=== PATIENT | male | born 1975 | race Caucasian/White ===

== ENCOUNTER 2017-11-13 15:09 | Emergency (ER) | payer SELFPAY ==
[2017-11-13] MEDS ORDERED: cefTRIAXone\\ROCEPHIN 1 GM VIAL ONE (15:33)
[2017-11-13] MEDS ORDERED: Lidocaine 1% 20 ML MDV ONE (15:33)
[2017-11-13] MEDS ORDERED: Ketorolac Tromethamine 60 MG/2 ML VIAL ONE (15:33)
== END 2017-11-13 16:00 | disposition home or self-care (01) ==
LOC: MADERS 15:09
DX: H66.92 Otitis media, unspecified, left ear (principal); F17.210 Nicotine dependence, cigarettes, uncomplicated
CPT/HCPCS: 96372; J0696; J1885; J2001

== ENCOUNTER 2019-07-17 07:55 | Emergency (ER) | payer SELFPAY ==
[2019-07-17] MEDS ORDERED: Azithromycin 250 MG TAB ONE (08:46)
[2019-07-17] MEDS ORDERED: cefTRIAXone\\ROCEPHIN 250 MG VIAL ONE (08:46)
[2019-07-17] MEDS ORDERED: Lidocaine 1% 20 ML MDV ONE (08:48)
[2019-07-17 09:08] LABS: Bilirubin Small (Negative); Blood, Urine Moderate (Negative); Clarity Cloudy (Clear); Glucose, Urine (Dipstick) 100 mg/dL (Negative); Leukocyte Large (Negative); Nitrite Positive (Negative); Protein, Urine (Dipstick) 100 mg/dL (Neg-Trace)
[2019-07-17 09:22] LABS: Bacteria/HPF 1+ HPF (None Seen); Mucous/LPF Rare LPF (<2+); WBC/HPF Greater Than 50 HPF (0-3)
[2019-07-22 22:08] LABS: Chlam.trachomatis by PCR,Urine Inconclusive (NotDetected)
== END 2019-07-17 09:00 | disposition home or self-care (01) ==
LOC: MADERS 07:55
DX: A64 Unspecified sexually transmitted disease (principal); F17.210 Nicotine dependence, cigarettes, uncomplicated
CPT/HCPCS: 81003; 81015; 87491; 87591; 96372; 99283; J0696; J2001

== ENCOUNTER 2022-12-06 22:08 | Emergency (ER) | payer OTHER, SELFPAY ==
[2022-12-06] MEDS ORDERED: Dexamethasone 10 MG/ML VIAL ONE (23:16)
[2022-12-06] MEDS ORDERED: Ketorolac Tromethamine 30 MG/ML VIAL ONE (23:16)
== END 2022-12-07 00:09 | disposition home or self-care (01) ==
LOC: MADERS 22:08
DX: M25.511 Pain in right shoulder (principal); F17.210 Nicotine dependence, cigarettes, uncomplicated
CPT/HCPCS: 96372; J1100; J1885